=== PATIENT | female | born 1970 ===

== ENCOUNTER 2021-06-20 06:40 | Emergency (ER) | payer OTHER ==
[~2021-06-20] VITALS: Ht 160 cm; Wt 103.4 kg
[2021-06-20] MEDS ORDERED: KETOROLAC TROMETHAMINE 60 MG/2 ML VIAL IM ONE (09:00)
[2021-06-20 09:42] VITALS: BP 130/84
== END 2021-06-20 09:35 | disposition home or self-care (01) ==
LOC: ER 06:45
DX: S16.1XXA Strain of muscle, fascia and tendon at neck level, initial encounter (principal); M25.512 Pain in left shoulder; V43.52XA Car driver injured in collision with other type car in traffic accident, initial encounter; Y92.488 Other paved roadways as the place of occurrence of the external cause
CPT/HCPCS: 70450; 71045; 72125; 73030; 99283; J1885